=== PATIENT | male | born 1965 | race African-American/Black ===

== ENCOUNTER 2017-02-05 11:51 | Emergency (ER) | payer MEDICAID, MEDICARE ==
[~2017-02-05] VITALS: Ht 175.3 cm; Wt 89.0 kg
[~2017-02-05 11:51] MED LIST: DES150; LANS30CA52; OLAN10TA3; TRAZADONE; [UNRECOGNIZED DRUG - OTHER]
[2017-02-05] MEDS ORDERED: SODIUM CHLORIDE 0.9% 1,000 ML IV ONE (12:45)
[2017-02-05 12:50] LABS: BASOPHILS % 0.6 % (0.0-2.0); EOSINOPHILS % 2.7 % (0.0-5.0); HEMATOCRIT. 37.7 % (42.0-52.0); HEMOGLOBIN. 12.7 g/dL (14.0-18.0); LYMPHOCYTES % 33.3 % (20.0-50.0); MEAN CORPUSCULAR HEMOGLOBIN 27.9 pg (28.0-32.0); MEAN CORPUSCULAR VOLUME 82.9 fL (80.0-94.0); MEAN PLATELET VOLUME 7.2 fl (7.4-10.4); MONOCYTES % 7.5 % (2.0-8.0); NEUTROPHILS % 55.9 % (40.0-76.0); PLATELET 227 x1000/uL (130-400); RED BLOOD CELL COUNT 4.54 mill/uL (4.7-6.1); RED CELL DISTRIBUTION WIDTH 15.8 % (11.6-14.6)
[2017-02-05 12:55] LABS: CHLORIDE 106 mEq/L (98-107)
[2017-02-05 12:59] LABS: CARBON DIOXIDE 24 mEq/L (21-32)
[2017-02-05 13:05] LABS: ETHANOL BLOOD < 10 mg/dL
[2017-02-05] MEDS ORDERED: LORAZEPAM 1MG TABLET PO ONE (19:45)
[2017-02-05 23:10] VITALS: BP 125/87
== END 2017-02-06 01:30 | disposition left against medical advice (07) ==
LOC: ER 12:04
DX: R45.851 Suicidal ideations (principal); F20.0 Paranoid schizophrenia; R03.0 Elevated blood-pressure reading, without diagnosis of hypertension; F14.10 Cocaine abuse, uncomplicated
CPT/HCPCS: 36415; 80053; 85025; 96360; 99284; G0482; J7030; Z7610

== ENCOUNTER 2017-02-06 03:25 | Emergency (ER) | payer MEDICAID | END 2017-02-06 08:22 | disposition left against medical advice (07) | LOC: ER 08:21 | DX: F32.9 Major depressive disorder, single episode, unspecified (principal); Z53.21 Procedure and treatment not carried out due to patient leaving prior to being seen by health care provider | CPT/HCPCS: Z7610 ×2 ==